=== PATIENT | male | born 1985 | race Asian ===

== ENCOUNTER 2019-03-30 05:14 | Emergency (ER) | payer OTHER ==
[~2019-03-30] VITALS: Ht 172.7 cm; Wt 79.5 kg
[2019-03-30 05:18] VITALS: BP 126/79; PULSE 64; RESP 19; Ht 172.7 cm; Wt 79.5 kg
[2019-03-30] MEDS ORDERED: IBUPROFEN 600 MG TAB PO ONE (05:30)
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
== END 2019-03-30 08:10 | disposition home or self-care (01) ==
LOC: E/R 05:14
DX: S09.90XA Unspecified injury of head, initial encounter (principal); S69.91XA Unspecified injury of right wrist, hand and finger(s), initial encounter; S89.91XA Unspecified injury of right lower leg, initial encounter; X99.8XXA Assault by other sharp object, initial encounter
CPT/HCPCS: 99283